=== PATIENT | female | born 1955 | race Caucasian/White ===

== ENCOUNTER 2021-02-11 07:17 | Observation (INO) ==
[2021-02-11 07:50] LABS: Basophils % 0.4 %; Eosinophils # 0.1 K/mcL (0.0-0.6); Eosinophils % 1.9 %; Hematocrit 38.9 % (35.3-44.9); Immature Granulocytes % 0.2 % (0-4); Lymphocytes # 1.8 K/mcL (0.6-4.6); Lymphocytes % 38.4 %; Mean Corpuscular HGB Conc 33.4 g/dL (31.6-35.5); Mean Corpuscular Hemoglobin 29.9 pg (28.0-33.3); Mean Corpuscular Volume 89.4 fL (83.0-100.0); Mean Platelet Volume 9.2 fL (9.4-12.4); Monocytes # 0.4 K/mcL (0.0-1.3); Monocytes % 9.2 %; Neutrophils # 2.3 K/mcL (1.6-8.9); Platelet Count 340 K/mcL (140-400); Red Blood Count 4.35 M/mcL (3.82-4.97); Red Cell Distribution Width 12.2 % (11.5-14.5); Segmented Neutrophils % 49.9 %; White Blood Count 4.7 K/mcL (4.3-11.1)
[2021-02-11] MEDS ORDERED: Isovue-370 500 ML BOTTLE IVP ONE (07:57)
[2021-02-11] MEDS ORDERED: Aspirin 81 MG TAB.CHEW PO ONE (08:09)
[2021-02-11 08:13] LABS: BUN/Creatinine Ratio 15 (6-26); Blood Urea Nitrogen 11 mg/dL (8-23); Calcium 9.7 mg/dL (8.6-10.3); Carbon Dioxide 26 mEq/L (23-29); Chloride 88 mEq/L (98-107); Glucose 109 mg/dL (70-105); Osmolality,Calculated 256 (280-300); Potassium 3.4 mEq/L (3.5-5.1); Sodium 123 mEq/L (136-145); Troponin I < 0.03 ng/mL (< 0.04); eGFR For African Americans > 60 (> 60); eGFR For Non-African Americans > 60 (> 60)
[2021-02-11] MEDS ORDERED: Potassium Chloride Elixir 20 MEQ/15 ML UDC PO ONE (08:25)
[2021-02-11] MEDS ORDERED: 0.9 % Sodium Chloride 1,000 ML IVC ONE (08:30)
[2021-02-11] MEDS ORDERED: 0.9 % Sodium Chloride 1,000 ML ONE (08:30)
[2021-02-11] MEDS ORDERED: Naloxone 0.4 MG/ML INJ IVP PRN (10:18)
[2021-02-11 10:27] LABS: Bilirubin,Urine Negative (Negative); Blood,Urine Negative (Negative); Clarity,Urine Clear (Clear); Color,Urine Yellow (Yellow); Glucose,Urine (UA) Normal (Normal); Ketones,Urine Negative (Negative); Leukocyte Esterase,Urine Negative (Negative); Nitrite,Urine Negative (Negative); PH,Urine 7.5 pH Units (5.0-8.0); Protein,Urine Negative (Neg-Trace); Specific Gravity,Urine 1.021 (1.010-1.025); Urobilinogen,Urine Normal (Normal)
[2021-02-11] MEDS ORDERED: Nitroglycerin 0.4 MG TAB.SUBL SL ONE (11:11)
[2021-02-11] MEDS: amLODIPine 5 MG TABLET PO SCH (11:32)
[2021-02-11] MEDS ORDERED: *HR* OxyCODONE/APAP 7.5/325 TABLET PO ONE (12:54)
[2021-02-11] MEDS: *HR* Heparin 5,000 UNIT/ML VIAL SQ SCH ×2 (13:07→20:42)
[2021-02-11] MEDS ORDERED: Nitroglycerin 0.4 MG TAB.SUBL SL PRN (17:05)
[2021-02-11] MEDS: Pantoprazole 40 MG VIAL IVP SCH ×2 (17:24→18:24)
[2021-02-11] MEDS: Ondansetron 4 MG/2 ML VIAL IVP PRN ×2 (17:24→21:48)
[2021-02-11] MEDS ORDERED: Acetaminophen 325 MG TABLET PO ONE (18:20)
[2021-02-12] MEDS: Ketorolac 15 MG/ML VIAL IVP PRN ×2 (03:18→21:03)
[2021-02-12] MEDS: Pantoprazole 40 MG VIAL IVP SCH ×2 (06:13→17:21)
[2021-02-12] MEDS: *HR* Heparin 5,000 UNIT/ML VIAL SQ SCH ×3 (06:13→20:57)
[2021-02-12] MEDS ORDERED: Regadenoson 0.4 MG/5 ML SYRINGE IVP ONE (06:29)
[2021-02-12 10:19] LABS: Alanine Aminotransferase 16 Units/L (7-52); Albumin 4.6 g/dL (3.5-5.7); Albumin/Globulin Ratio 1.5 (1.1-2.2); Alkaline Phosphatase 68 Units/L (34-104); Aspartate Amino Transferase 23 Units/L (13-39); BUN/Creatinine Ratio 15 (6-26); Bilirubin,Total 0.6 mg/dL (0.3-1.0); Blood Urea Nitrogen 12 mg/dL (8-23); Carbon Dioxide 24 mEq/L (23-29); Chloride 94 mEq/L (98-107); Glucose 130 mg/dL (70-105); Osmolality,Calculated 266 (280-300); Sodium 127 mEq/L (136-145); Total Protein 7.6 g/dL (6.4-8.9); eGFR For African Americans > 60 (> 60); eGFR For Non-African Americans > 60 (> 60)
[2021-02-12] MEDS: amLODIPine 5 MG TABLET PO SCH (10:23)
[2021-02-12] MEDS: lisinopriL 10 MG TABLET PO SCH (10:23)
[2021-02-13 01:57] LABS: Hematocrit 39.8 % (35.3-44.9); Hemoglobin 13.2 g/dL (11.5-15.4); Mean Corpuscular HGB Conc 33.2 g/dL (31.6-35.5); Mean Corpuscular Hemoglobin 29.3 pg (28.0-33.3); Mean Corpuscular Volume 88.4 fL (83.0-100.0); Mean Platelet Volume 9.6 fL (9.4-12.4); Platelet Count 413 K/mcL (140-400); Red Cell Distribution Width 12.5 % (11.5-14.5)
[2021-02-13 02:04] LABS: White Blood Count 9.5 K/mcL (4.3-11.1)
[2021-02-13 02:21] LABS: Alanine Aminotransferase 15 Units/L (7-52); Albumin 4.5 g/dL (3.5-5.7); Albumin/Globulin Ratio 1.7 (1.1-2.2); Alkaline Phosphatase 68 Units/L (34-104); Aspartate Amino Transferase 22 Units/L (13-39); BUN/Creatinine Ratio 23 (6-26); Bilirubin,Total 0.4 mg/dL (0.3-1.0); Blood Urea Nitrogen 20 mg/dL (8-23); Calcium 10.2 mg/dL (8.6-10.3); Carbon Dioxide 24 mEq/L (23-29); Chloride 95 mEq/L (98-107); Globulin 2.6 g/dL (2.4-3.5); Glucose 102 mg/dL (70-105); Osmolality,Calculated 271 (280-300); Potassium 3.6 mEq/L (3.5-5.1); Sodium 129 mEq/L (136-145); Total Protein 7.1 g/dL (6.4-8.9); eGFR For African Americans > 60 (> 60); eGFR For Non-African Americans > 60 (> 60)
[2021-02-13] MEDS: *HR* Heparin 5,000 UNIT/ML VIAL SQ SCH (05:35)
[2021-02-13] MEDS: Pantoprazole 40 MG VIAL IVP SCH (05:35)
[2021-02-13] MEDS: amLODIPine 5 MG TABLET PO SCH (07:55)
[2021-02-13] MEDS: lisinopriL 10 MG TABLET PO SCH (07:55)
[2021-02-13 09:38] LABS: Bilirubin,Urine Negative (Negative); Blood,Urine Large (Negative); Clarity,Urine Ex.Turbid (Clear); Color,Urine Yellow (Yellow); Glucose,Urine (UA) Normal (Normal); Ketones,Urine Negative (Negative); Leukocyte Esterase,Urine Large (Negative); Nitrite,Urine Negative (Negative); Protein,Urine 200 mg/dL (Neg-Trace); Specific Gravity,Urine 1.019 (1.010-1.025); Urobilinogen,Urine Normal (Normal)
[2021-02-13 09:41] LABS: WBC,Urine TNTC per hpf (0-3)
[2021-02-13 09:43] LABS: Squamous Epithelial Cell,Urine Present per hpf (None-Few)
[2021-02-13 09:52] LABS: Amorphous Sediment,Urine Present per hpf (None-Few); Bacteria,Urine Present per hpf (None-Few)
[2021-02-13 09:53] LABS: RBC,Urine Present per hpf (0-3)
[2021-02-13 11:50] VITALS: BP 147/70
== END 2021-02-13 12:11 | disposition home or self-care (01) ==
LOC: EMEROOARM 07:17 → CDU 07:17 → SUATTDRO 09:59 → CDU 10:21 → 3BNU 17:39
PROVIDERS: ADMIT Internal Medicine; ATTEND Registered Nurse